=== PATIENT | male | born 1950 | race African-American/Black ===

== ENCOUNTER 2018-09-07 16:31 | Inpatient (IN) | payer MEDICAID, MEDICARE ==
[~2018-09-07] VITALS: Ht 177.8 cm; Wt 55.9 kg
[~2018-09-07 16:31] MED LIST: ALBU2.5V13 IH; FORM0.5P MC; MULT-1146 PO; TIOT18CA3 INH
[2018-09-07] MEDS ORDERED: IPRATROPIUM BROMIDE (0.02%) 0.5MG/2.5ML NEB HHN STA (16:37)
[2018-09-07] MEDS ORDERED: ALBUTEROL (0.083%) 2.5MG/3ML NEB HHN STA (16:37)
[2018-09-07] MEDS ORDERED: ONDANSETRON HCL 4MG/2ML INJ IV ONE (16:45)
[2018-09-07] MEDS ORDERED: ASPIRIN 325MG TABLET PO ONE (16:45)
[2018-09-07] MEDS ORDERED: IPRATROPIUM BROMIDE (0.02%) 0.5MG/2.5ML NEB ONE (16:47)
[2018-09-07] MEDS ORDERED: ALBUTEROL (0.083%) 2.5MG/3ML NEB ONE (16:47)
[2018-09-07 17:03] LABS: EOSINOPHILS % 0.5 % (0.0-5.0); HEMOGLOBIN. 14.7 g/dL (14.0-18.0); MEAN CORPUSCULAR HEMOGLOBIN 32.9 pg (28.0-32.0); MEAN CORPUSCULAR VOLUME 98.1 fL (80.0-94.0); MEAN PLATELET VOLUME 8.4 fl (7.4-10.4); MONOCYTES % 7.5 % (2.0-8.0); PLATELET 317 x1000/uL (130-400); RED BLOOD CELL COUNT 4.49 mill/uL (4.7-6.1); RED CELL DISTRIBUTION WIDTH 14.5 % (11.6-14.6)
[2018-09-07 17:07] LABS: BG BASE EXCESS -2.8 mmol/L (-2.0-2.0); BG BILEVEL POS AIRWAY PRESSURE 15/5; BG CARBOXYHEMOGLOBIN 0.5 % (0.5-1.5); BG DEOXYHEMOGLOBIN 0.7 % (0.0-5.0); BG HCO3 ACT 21.4 mmol/L (22.0-26.0); BG METHEMOGLOBIN 0.4 % (0.0-1.5); BG OXYGEN SATURATION 99.3 % (92.0-98.5); BG OXYHEMOGLOBIN 98.4 % (94.0-97.0); BG PCO2 35.9 mmHg (35.0-45.0); BG PH 7.393 (7.350-7.450); BG PO2 234.7 mmHg (75.0-100.0); BG SAMPLE SITE RIGHT RADIAL; BG TOTAL HEMOGLOBIN 15.1 g/dL (12.0-18.0); BG VENT MODE MASK - BIPAP; BG VENT RATE 16 set
[2018-09-07 17:07] LABS: CHLORIDE 100 mEq/L (98-107)
[2018-09-07] MEDS ORDERED: FENTANYL CITRATE/PF 50MCG/ML 2ML VIAL IV ONE (17:45)
[2018-09-07] MEDS ORDERED: KETAMINE HCL 50 MG/ML 10ML IV ONE (17:45)
[2018-09-07] MEDS ORDERED: MORPHINE SULFATE 10 MG/ML CPJ ONE (18:14)
[2018-09-07] MEDS ORDERED: ONDANSETRON HCL 4MG/2ML INJ IV PRN (22:00)
[2018-09-07] MEDS ORDERED: DOCUSATE SODIUM 100MG CAPSULE PO PRN (22:00)
[2018-09-07] MEDS ORDERED: DIPHENHYDRAMINE 50MG/ML VIAL IV PRN (22:00)
[2018-09-07] MEDS ORDERED: MAGNESIUM/ALUMINUM HYDROXIDE/SIMETHICONE 30ML UDC PO PRN (22:00)
[2018-09-07] MEDS ORDERED: HYDROCODONE/ACETAMINOPHEN 5/325MG TABLET PO PRN (22:00)
[2018-09-07] MEDS ORDERED: CLONIDINE 0.1MG TABLET PO PRN (22:00)
[2018-09-07] MEDS ORDERED: MORPHINE SULFATE 10 MG/ML CPJ IV ONE (22:30)
[2018-09-08] VITALS (13 sets, daily range): BP systolic 111–136; BP diastolic 56–91
[2018-09-08] MEDS: HYDROCODONE/APAP 7.5/325MG 1 TAB TABLET PO PRN ×3 (00:46→23:26)
[2018-09-08] MEDS ORDERED: BUDE6.9H INH (01:21)
[2018-09-08] MEDS ORDERED: MORPHINE SULFATE 4 MG/ML CPJ (NOT FOR IM USE) IV PRN (04:45)
[2018-09-08 07:05] LABS: BASOPHILS % 0.5 % (0.0-2.0); EOSINOPHILS % 0.6 % (0.0-5.0); HEMATOCRIT. 40.2 % (42.0-52.0); HEMOGLOBIN. 13.1 g/dL (14.0-18.0); LYMPHOCYTES % 12.7 % (20.0-50.0); MEAN CORPUSCULAR HEMOGLOBIN 32.3 pg (28.0-32.0); MEAN CORPUSCULAR VOLUME 98.8 fL (80.0-94.0); MEAN PLATELET VOLUME 8.7 fl (7.4-10.4); MONOCYTES % 10.4 % (2.0-8.0); NEUTROPHILS % 75.8 % (40.0-76.0); PLATELET 267 x1000/uL (130-400); RED BLOOD CELL COUNT 4.07 mill/uL (4.7-6.1); RED CELL DISTRIBUTION WIDTH 14.2 % (11.6-14.6)
[2018-09-08 07:40] LABS: CHLORIDE 101 mEq/L (98-107)
[2018-09-08 07:47] LABS: PHOSPHORUS 3.2 mg/dL (2.5-4.9)
[2018-09-08] MEDS ORDERED: MEDICATION NOT ON FORMULARY EA (Tiotropium Bromide (Spiriva) 1 CAP) INH SCH (10:00)
[2018-09-08] MEDS ORDERED: FORMOTEROL FUMARATE 12 MCG MC PRN (10:00)
[2018-09-08] MEDS ORDERED: MEDICATION NOT ON FORMULARY EA (Budesonide/Formoterol Fumarate (Symbicort 80/4.5 Mcg Inh INH SCH (10:00)
[2018-09-08] MEDS ORDERED: ALBUTEROL (0.083%) 2.5MG/3ML NEB HHN PRN (10:00)
[2018-09-08] MEDS: MULTIVITAMINS,THER W-MINERALS TABLET PO SCH (10:53)
[2018-09-08] MEDS: LIDOCAINE 5% PATCH TOP SCH (10:57)
[2018-09-08] MEDS: IPRATROPIUM/ALBUTEROL 0.5-3(2.5)MG/3ML NEB HHN SCH ×2 (14:15→21:28)
[2018-09-08] MEDS: NICOTINE 14MG PATCH TD SCH (16:15)
[2018-09-08] MEDS: BUDESONIDE 0.5MG/2ML NEB HHN SCH (21:28)
[2018-09-09] VITALS (12 sets, daily range): BP systolic 96–121; BP diastolic 51–71
[2018-09-09] MEDS: IPRATROPIUM/ALBUTEROL 0.5-3(2.5)MG/3ML NEB HHN SCH ×4 (00:34→20:39)
[2018-09-09] MEDS: BUDESONIDE 0.5MG/2ML NEB HHN SCH ×2 (07:23→20:39)
[2018-09-09 07:43] LABS: BASOPHILS % 0.9 % (0.0-2.0); EOSINOPHILS % 2.7 % (0.0-5.0); HEMATOCRIT. 40.2 % (42.0-52.0); HEMOGLOBIN. 13.4 g/dL (14.0-18.0); LYMPHOCYTES % 18.7 % (20.0-50.0); MEAN CORPUSCULAR HEMOGLOBIN 32.4 pg (28.0-32.0); MEAN CORPUSCULAR VOLUME 97.6 fL (80.0-94.0); MEAN PLATELET VOLUME 8.6 fl (7.4-10.4); MONOCYTES % 12.2 % (2.0-8.0); NEUTROPHILS % 65.5 % (40.0-76.0); PLATELET 253 x1000/uL (130-400); RED BLOOD CELL COUNT 4.12 mill/uL (4.7-6.1)
[2018-09-09] MEDS: MULTIVITAMINS,THER W-MINERALS TABLET PO SCH (08:34)
[2018-09-09] MEDS: LIDOCAINE 5% PATCH TOP SCH (08:36)
[2018-09-09] MEDS: NICOTINE 14MG PATCH TD SCH (08:36)
[2018-09-09] MEDS: HYDROCODONE/APAP 7.5/325MG 1 TAB TABLET PO PRN (08:40)
[2018-09-09 09:27] LABS: CHLORIDE 100 mEq/L (98-107)
[2018-09-09] MEDS ORDERED: LIDOCAINE HCL/EPINEPHRINE 1%-EPI 1:100,000 20 ML VIAL INFIL NR (11:00)
[2018-09-10] VITALS (7 sets, daily range): BP systolic 104–121; BP diastolic 56–73
[2018-09-10] MEDS: IPRATROPIUM/ALBUTEROL 0.5-3(2.5)MG/3ML NEB HHN SCH ×2 (02:03→08:44)
[2018-09-10 06:50] LABS: EOSINOPHILS % 4.5 % (0.0-5.0); HEMATOCRIT. 39.7 % (42.0-52.0); HEMOGLOBIN. 13.5 g/dL (14.0-18.0); MEAN CORPUSCULAR HEMOGLOBIN 33.3 pg (28.0-32.0); MEAN CORPUSCULAR VOLUME 97.7 fL (80.0-94.0); MEAN PLATELET VOLUME 8.3 fl (7.4-10.4); MONOCYTES % 12.7 % (2.0-8.0); NEUTROPHILS % 62.8 % (40.0-76.0); PLATELET 263 x1000/uL (130-400); RED BLOOD CELL COUNT 4.06 mill/uL (4.7-6.1); RED CELL DISTRIBUTION WIDTH 14.1 % (11.6-14.6)
[2018-09-10 07:06] LABS: CHLORIDE 101 mEq/L (98-107)
[2018-09-10] MEDS: NICOTINE 14MG PATCH TD SCH (08:34)
[2018-09-10] MEDS: LIDOCAINE 5% PATCH TOP SCH (08:35)
[2018-09-10] MEDS: MULTIVITAMINS,THER W-MINERALS TABLET PO SCH (08:43)
[2018-09-10] MEDS: BUDESONIDE 0.5MG/2ML NEB HHN SCH (08:44)
== END 2018-09-10 13:31 | disposition home or self-care (01) | DRG 199 ==
LOC: ER 16:31 → 3WST 21:24 → EDBEDREQTM 21:31 → EDBEDREQSVC 21:31 → EDBEDREQ 21:31 → ENRESERV 22:13 → 3WST 09-08 09:19
PROVIDERS: ADMIT Family Medicine Adult Medicine; ATTEND Family Medicine Adult Medicine
PROC: 0W9B30Z Drainage of Left Pleural Cavity with Drainage Device, Percutaneous Approach (ICD-10-PCS; principal; 2018-09-07)
PROC: 5A09357 Assistance with Respiratory Ventilation, Less than 24 Consecutive Hours, Continuous Positive Airway Pressure (ICD-10-PCS; 2018-09-07)
DX: J93.83 Other pneumothorax (principal); J96.00 Acute respiratory failure, unspecified whether with hypoxia or hypercapnia; E87.1 Hypo-osmolality and hyponatremia; R64 Cachexia; Z68.1 Body mass index [BMI] 19.9 or less, adult; J44.9 Chronic obstructive pulmonary disease, unspecified; F17.210 Nicotine dependence, cigarettes, uncomplicated; I10 Essential (primary) hypertension; Z79.899 Other long term (current) drug therapy; Z71.6 Tobacco abuse counseling
CPT/HCPCS: 36415; 36600; 71045; 71250; 80048; 82375; 82805; 83735; 83880; 84100; 84484; 93005; 93970; 94640; 94660; 96374; 99291; J2270; J2405; J3010; J3490; J7611; J7620; J7626